=== PATIENT | male | born 1955 | race Caucasian/White ===

== ENCOUNTER 2023-04-10 09:30 | Emergency (ER) | payer OTHER ==
[~2023-04-10] VITALS: Ht 180.3 cm; Wt 108.9 kg
[2023-04-10] MEDS ORDERED: ONDANSETRON 4 MG/2 ML VIAL ONE (09:59)
[2023-04-10] MEDS ORDERED: ONDANSETRON 4 MG/2 ML VIAL IV ONE (10:00)
[2023-04-10] MEDS ORDERED: HYDROMORPHONE 1 MG/1 ML DISP.SYRIN IV ONE ×2 (10:00→10:30)
[2023-04-10] MEDS ORDERED: HYDROMORPHONE 1 MG/1 ML DISP.SYRIN ONE ×2 (10:00→10:16)
[2023-04-10 10:03] LABS: BASOPHILS % (AUTO) 0.7 % (0.0-2.0); EOSINOPHILS # (AUTO) 0.2 K/uL (0.0-0.7); EOSINOPHILS % (AUTO) 2.6 % (0.0-7.0); HEMATOCRIT 40.1 % (36.7-47.1); HEMOGLOBIN 13.4 g/dL (12.5-16.3); LYMPHOCYTES # (AUTO) 1.6 K/uL (0.8-4.8); LYMPHOCYTES % (AUTO) 27.2 % (20.5-51.5); MEAN CORPUSCULAR HEMOGLOBIN 27.7 uug (23.8-33.4); MEAN CORPUSCULAR HGB CONC 33 g/dL (32.5-36.3); MEAN CORPUSCULAR VOLUME 83.1 fL (73.0-96.2); MONOCYTES # (AUTO) 0.5 K/uL (0.1-1.30); NEUTROPHILS # (AUTO) 3.7 K/uL (1.8-8.9); NEUTROPHILS % (AUTO) 60.5 % (38.5-71.5); PLATELET COUNT (AUTO) 130 K/uL (152-348); RED BLOOD CELL COUNT(AUTO) 4.82 MIL/uL (4.06-5.63); RED CELL DISTRIBUTION WIDTH 14.3 % (12.1-16.2); WHITE BLOOD COUNT (AUTO) 6.1 K/uL (3.6-10.2)
[2023-04-10 10:09] LABS: DIFFERENTIAL COMMENT 1
[2023-04-10 10:13] LABS: CALCIUM 9.3 mg/dL (8.5-10.1); CARBON DIOXIDE 29 mmol/L (21-32); CHLORIDE 103 mmol/L (98-107); CREATININE 0.8 mg/dL (0.6-1.3); GLUCOSE 119 mg/dL (74-106); POTASSIUM 4.4 mmol/L (3.5-5.1); SODIUM SERUM 136 mmol/L (136-145); UREA NITROGEN, BLOOD 14 mg/dL (7-18)
[2023-04-10 10:14] LABS: *OCCULT BLOOD STOOL NEGATIVE (NEGATIVE)
[2023-04-10 10:43] LABS: ALKALINE PHOSPHATASE 137 U/L (50-136); ASPARTATE AMINOTRANSFERASE 11 U/L (15-37); BILIRUBIN,DIRECT 0.1 mg/dL (0.0-0.2); BILIRUBIN,TOTAL 0.6 mg/dL (0.2-1.0)
[2023-04-10 10:44] LABS: ALANINE AMINOTRANSFERASE 18 U/L (16-63); ALBUMIN 3.6 g/dL (3.4-5.0); LIPASE 37 U/L (73-393); TOTAL PROTEIN, SERUM 7.6 g/dL (6.4-8.2)
[2023-04-10] MEDS ORDERED: BISACODYL 10 MG SUPP.RECT RC ONE ×2 (11:15→11:18)
[2023-04-10] MEDS ORDERED: FLEET ENEMA 133 ML BOTTLE RC ONE ×2 (12:54→13:00)
[2023-04-10 14:11] VITALS: BP 130/75; O2SAT 97
== END 2023-04-10 14:12 | disposition home or self-care (01) ==
LOC: ER 09:30
DX: K56.41 Fecal impaction (principal); R07.89 Other chest pain; I10 Essential (primary) hypertension; Z90.49 Acquired absence of other specified parts of digestive tract
CPT/HCPCS: 99285; 74176; 96374; 71045; 96375; 82270; 80076; 80048; 83690; 85025; 84484; 96376; J2405; J1170 ×2; 36415; A4606; A4663

== ENCOUNTER 2023-11-11 12:38 | Emergency (ER) | payer MEDICARE, OTHER ==
[~2023-11-11] VITALS: Ht 180.3 cm; Wt 109.8 kg
[~2023-11-11 12:38] MED LIST: ACET325T53 PO; ATOR40TA PO; CYCL5TAB PO; IBUP-1953 PO; LISI20TA30 PO; MECL-159 PO; NAPR-1009 PO; OMEP40CA21 PO; ONDA4TAB5 PO; OXYB15TA19 PO; SERT100T PO; VERA100C4 PO
[2023-11-11] MEDS: IBUPROFEN 400 MG TABLET PO ONE (13:01)
[2023-11-11] MEDS ORDERED: IBUPROFEN 400 MG TABLET ONE (13:01)
[2023-11-11] MEDS ORDERED: ACETAMINOPHEN ES 500 MG TABLET ONE (13:01)
[2023-11-11] MEDS: ACETAMINOPHEN ES 500 MG TABLET PO ONE (13:02)
[2023-11-11 13:27] LABS: *BILIRUBIN,URIN NEGATIVE (NEGATIVE); *BLOOD, URINE TRACE (NEGATIVE); *CLARITY,URINE CLEAR (CLEAR); *COLOR,URINE YELLOW (YELLOW); *KETONES,URINE NEGATIVE (NEGATIVE); *PROTEIN,URINE NEGATIVE (NEGATIVE); *UROBILINOGEN,URINE 0.2 E.U./dl (NORMAL); LEUKOCYTE ESTERASE ,URINE NEGATIVE (NEGATIVE); NITRITE, URINE NEGATIVE (NEGATIVE); UGLUCOSE NEGATIVE (NEGATIVE)
[2023-11-11 13:46] LABS: BACTERIA,URINE NONE SEEN /HPF (NONE SEEN); RBC,URINE 0-3 /HPF (0-3); SQUAMOUS EPITHELIAL CELL,UR FEW /HPF (NONE SEEN); WBC,URINE 0-3 /HPF (0-3)
[2023-11-11 16:54] VITALS: BP 127/81; O2SAT 97
== END 2023-11-11 16:54 | disposition home or self-care (01) ==
LOC: ER 12:47
DX: R10.9 Unspecified abdominal pain (principal); Z98.890 Other specified postprocedural states; Z79.899 Other long term (current) drug therapy; Z60.2 Problems related to living alone
CPT/HCPCS: A4606; A4663; A9150

== ENCOUNTER 2024-04-26 17:53 | Emergency (ER) | payer MEDICARE, OTHER ==
[~2024-04-26] VITALS: Ht 180.3 cm; Wt 109.8 kg
[2024-04-26] MEDS ORDERED: SILVER SULFADIAZINE 1% CREAM 50 GM TP ONE (18:13)
[2024-04-26] MEDS ORDERED: SILV50CR32 TP (18:14)
[2024-04-26] MEDS ORDERED: TDAP DIPH,PERTUSS,TET VAC/PF 0.5 ML DISP.SYRIN IM ONE (18:14)
[2024-04-26] MEDS ORDERED: HYDR-3980 PO (18:14)
[2024-04-26] MEDS: TDAP DIPH,PERTUSS,TET VAC/PF 0.5 ML DISP.SYRIN IM ONE (18:29)
[2024-04-26] MEDS: SILVER SULFADIAZINE 1% CREAM 50 GM TP ONE ×2 (18:30→18:32)
[2024-04-26 18:33] VITALS: BP 145/88; O2SAT 97
== END 2024-04-26 18:34 | disposition home or self-care (01) ==
LOC: ER 17:53
DX: T25.229A Burn of second degree of unspecified foot, initial encounter (principal); I10 Essential (primary) hypertension; Z85.46 Personal history of malignant neoplasm of prostate; Z79.899 Other long term (current) drug therapy; Z60.2 Problems related to living alone; X10.0XXA Contact with hot drinks, initial encounter; Y93.89 Activity, other specified; Y92.89 Other specified places as the place of occurrence of the external cause; Y99.8 Other external cause status
CPT/HCPCS: 16020; 90715; A4606; A4663